=== PATIENT | male | born 1945 | race Caucasian/White ===

== ENCOUNTER → 2017-05-22 | Outpatient (CLI) | payer BC ==
[~2017-05-22] MED LIST: REGADENOSON 0.4 MG/5 ML DISP.SYRIN. IV ONE
--- NOTE | 2017-05-22 14:21 | PCVCIMAG ---
APPROVED REPORT Exam: Nuclear Stress Test Indication: Dyspnea, Chest Pain Patient Location: Out-Patient Stress Nurse: Jeanette Antunez RN, Raina Worthington RN CT Tech:Otto Gilbert NMTCB Ht: 5 ft 9 in Wt: 227 lbs BSA: 2.18 m2 HR: 77 bpm BP: 169/83 mmHg BMI: 33.5 Rhythm: SR, RBBB Medical History Medical History: Age, Hyperlipidemia, HTN, CAD, Elevated CA, Smoker, Dm non insulin Medications: ASA, Lipitor, Benicar Allergies: NKDA Pretest Chest Pain Characteristics: No chest pain Exercise History: Physically active NM EXAM: Myocardial Perfusion REST/STRESS Imaging Protocol: Rest Tc-99m/Stress Tc-99m 1 day Resting Data Rest SPECT myocardial perfusion imaging was performed in supine position 45 minutes following the intravenous injection of 11.6 mCi of Tc-99m Sestamibi. Time of rest injection: 09 Date: 05/22/2017 Administration Route: IV Administration Site: Right Hand Pharmacologic Stress Pharmacologic stress test was performed by injecting Regadenoson 0.4 mg IV push followed by the intravenous injection of 35.4 mCi of Tc-99m Sestamibi. Time of stress injection: 1115 Date: 05/22/2017 Administration Route: IV Administration Site: Right Hand Gated Stress SPECT was performed 45 minutes after stress injection. The images were gated to evaluate regional wall motion and calculate left ventricular ejection fraction. Study Data Post stress, the left ventricular ejection was 63%.. SSS: 0 SRS: 4 SDS: 0 TID = 1.09. Perfusion No evidence of stress induced ischemia or prior myocardial infarction. Wall Motion Normal left ventricular size and function with no regional wall motion abnormalities. Nuclear Conclusion No evidence of stress induced ischemia or prior myocardial infarction. Normal left ventricular size and function with no regional wall motion abnormalities. Post stress, the left ventricular ejection was 63%.. No change since prior study dated April 2015. Interpreted by: Chester Montgomery MD Electronically Approved: 05/22/2017 12:56:41 Stress Test Details Stress Test: Pharmacologic stress was paired with low level exercise. Reason for pharmacologic stress test: Knee issues, Hip issues. HR Resting HR: 77 bpmMax Heart Rate (APMHR): 151 bpm Max HR Achieved: 125 bpmTarget HR (85% APMHR): 128 bpm % of APMHR: 82 Recovery HR: 91 bpm BP Resting BP: 169/83 mmHg Max BP: 148/83 mmHg ECG Resting ECG: Sinus Rhythm, RBBB Stress ECG: Sinus Tachycardia, RBBB Recovery ECG: Sinus Rhythm, RBBB Clinical Reason for Termination: Completed protocol Stress Symptoms: Lightheaded, Leg Fatigue Symptoms resolved over time Stress ECG Conclusion ECG: Non-ischemic Clinical: Non-ischemic <Conclusion> ECG: Non-ischemic Clinical: Non-ischemic
== END | disposition home or self-care (01) ==
LOC: PCVCIMAG 09:22
PROVIDERS: ATTEND Internal Medicine Cardiovascular Disease
DX: R07.9 Chest pain, unspecified (principal); R06.00 Dyspnea, unspecified; E78.5 Hyperlipidemia, unspecified; I10 Essential (primary) hypertension; I25.10 Atherosclerotic heart disease of native coronary artery without angina pectoris; E11.9 Type 2 diabetes mellitus without complications; F17.200 Nicotine dependence, unspecified, uncomplicated; E83.59 Other disorders of calcium metabolism; Z79.4 Long term (current) use of insulin
CPT/HCPCS: 78452; 93017; A9500; J2785

== ENCOUNTER → 2018-09-03 | Outpatient (CLI) | payer MEDICARE ==
--- NOTE | 2018-09-03 14:25 | PCVCIMAG ---
APPROVED REPORT Study performed: 09/03/2018 13:19:23 Exam: Stress Echocardiogram Indication: CAD , Hyperlipidemia Patient Location: Echo lab Stress Nurse: Raina Worthington RN Room #: 2 Status: routine Ht: 5 ft 9 in HR: 84 bpm BP: 132/66 mmHg Rhythm: NSR Medical History Medical History: Hyperlipidemia, Diabetes, CKD,carotid endarterectomy Cardiac Risk Factors: DM, Hyperlipidemia, DANIE,Cor Ca+>500 Pretest Chest Pain Characteristics: No chest pain Exercise History: Indeterminate Procedure The patient underwent an Exercise Stress Test using the Juanito Protocol. Blood pressure, heart rate, and EKG were monitored. An Echocardiogram was performed by audiovisual aids technician in four stages in quad fashion. At peak stress, four selected images were obtained and placed side by side with resting images for comparison. Stress Test Details Stress Test: Exercise stress testing was performed using a Juanito protocol. HR Resting HR: 84 bpmMax Heart Rate (APMHR): 149 bpm Max HR Achieved: 146 bpmTarget HR (85% APMHR): 126 bpm % of APMHR: 97 Recovery HR: 95 bpm HR response to stress: Normal HR response to stress BP Resting BP: 132/66 mmHg Max BP: 170/70 mmHg Recovery BP: 160/70 mmHg BP response to stress: Normal blood pressure response to stress. ECG Resting ECG: Sinus Rhythm Stress ECG: Sinus Rhythm ST Change: Non-ischemic Maximum ST Deviation: -1.2 mm Arrhythmia: rare PVC Recovery ECG: Sinus Rhythm Recovery ST Change: Non-ischemic Recovery ST Deviation: -1.15 mm Recovery Arrhythmia: None Clinical Reason for Termination: Maximal effort Stress Symptoms: fatigue Exercise duration: 6 min 00 sec Highest Stage Achieved: Stage 2: 2.5 mph at 12% grade. Exercise capacity: 7.0 METs Overall Exercise Capacity for Age: Poor Scale: Sedentary Angina Score: None No complications. Stress ECG Conclusion The patient exercised according to the JUANITO protocol for 6:00 mins; achieving a work level of 7.0 METS. The resting heart rate of 84 bpm rafia to a maximum heart rate of 146 bpm. This value [id number] % of the maximal, age-predicted heart rate. The resting blood pressure of 132/66 mmHg, rafia to a maximum blood pressure of 170/70 mmHg. The exercise test was stopped due to exercise. Faith Treadmill Score is 12.0 which is Low risk. Pre-Stress Echo The resting Echocardiogram showed normal left ventricular contractility with an estimated Ejection Fraction of about 55-60%. Normal wall motion in all segments on baseline images. Post-Stress Echo The stress Echocardiogram showed normal left ventricular contractility with an estimated Ejection Fraction of about 60-65%. Normal augmentation of wall motion in all segments on post stress images. Clinical No clinical or ECG evidence for ischemia. Conclusion Clinical Response: Non-ischemic Exercise Capacity: Below Average Stress ECG Response: Non-ischemic Stress Echo Images: Non-ischemic No clinical, EKG or echocardiographic evidence for ischemia. No echocardiographic evidence for exercise induced ischemia. Normal stress echocardiogram with maximal exercise stress. <Conclusion> No clinical, EKG or echocardiographic evidence for ischemia. No echocardiographic evidence for exercise induced ischemia. Normal stress echocardiogram with maximal exercise stress.
== END | disposition home or self-care (01) ==
LOC: PCVCIMAG 13:29
PROVIDERS: ATTEND Internal Medicine Cardiovascular Disease
DX: I25.119 Atherosclerotic heart disease of native coronary artery with unspecified angina pectoris (principal); E78.5 Hyperlipidemia, unspecified; R93.1 Abnormal findings on diagnostic imaging of heart and coronary circulation; I77.9 Disorder of arteries and arterioles, unspecified; E78.00 Pure hypercholesterolemia, unspecified; R07.9 Chest pain, unspecified; R53.83 Other fatigue
CPT/HCPCS: 93325; 93351